=== PATIENT | female | born 2005 | race Two or more races ===

== ENCOUNTER → 2024-02-03 | Outpatient (CLI) | payer OTHER ==
[~2024-02-03] MED LIST: KEPP10002 PO; MULTTAB20 PO
[2024-02-03 12:30] LABS: BASO % 0.3 % (0.0-1.0); EOS % 0.3 % (0.0-3.0); HEMATOCRIT 33.3 % (36.0-47.0); HEMOGLOBIN 10.7 g/dl (12.0-15.5); LYMPH # 2.5 10^3/uL (1.5-5.0); LYMPH % 26.4 % (24.0-44.0); MEAN CORPUSCULAR HEMOGLOBIN 31.3 pg (27.0-33.0); MEAN CORPUSCULAR HGB CONC 32.1 g/dl (32.0-36.5); MEAN CORPUSCULAR VOLUME 97.4 fl (80.0-96.0); MONO # 0.6 10^3/uL (0.0-0.8); MONO % 6.1 % (2.0-8.0); NEUTROPHILS # 6.2 10^3/uL (1.5-8.5); NEUTROPHILS % 66.4 % (36.0-66.0); PLATELET COUNT, AUTOMATED 312 10^3/uL (150-450); RED BLOOD COUNT 3.42 10^6/uL (4.00-5.40); WHITE BLOOD COUNT 9.3 10^3/uL (4.0-10.0)
[2024-02-03 13:33] LABS: HIV 1&2 SCREEN NEGATIVE (NEGATIVE)
[2024-02-03 13:42] LABS: HEPATITIS C VIRUS ABY INDEX 0.02 INDEX (<0.8)
[2024-02-03 14:23] LABS: GC DNA AMPLIFICATION NEGATIVE (NEGATIVE)
== END ==
LOC: M LAB 11:02
PROVIDERS: ATTEND Family Medicine
DX: O98.319 Other infections with a predominantly sexual mode of transmission complicating pregnancy, unspecified trimester (principal)

== ENCOUNTER 2024-02-06 08:09 | Inpatient (IN) | payer OTHER ==
[~2024-02-06] VITALS: Ht 172.7 cm; Wt 65.2 kg
[2024-02-06] VITALS (49 sets, daily range): BP systolic 96–138; BP diastolic 51–77
[2024-02-06] MEDS ORDERED: MULTTAB20 PO (08:36)
[2024-02-06] MEDS ORDERED: KEPP10002 PO (08:36)
[2024-02-06 09:36] LABS: HEMOGLOBIN 9.7 g/dl (12.0-15.5); MEAN CORPUSCULAR HGB CONC 32.3 g/dl (32.0-36.5); MEAN CORPUSCULAR VOLUME 95.8 fl (80.0-96.0); PLATELET COUNT, AUTOMATED 283 10^3/uL (150-450); RED BLOOD COUNT 3.13 10^6/uL (4.00-5.40); WHITE BLOOD COUNT 7.9 10^3/uL (4.0-10.0)
[2024-02-06] MEDS ORDERED: OXYTOCIN INJ 10UNITS/ML 1ML VIAL IM PRN (10:00)
[2024-02-06] MEDS ORDERED: CARBOPROST TROMETHAMINE 250 MCG/ML AMP IM PRN (10:00)
[2024-02-06] MEDS ORDERED: OXYTOCIN DRIP 30 UNITS in IV 1 EA IV PRN (10:00)
[2024-02-06] MEDS ORDERED: METHYLERGONOVINE MALEATE 0.2MG/ML 1ML VIAL IM PRN (10:00)
[2024-02-06] MEDS ORDERED: TRANEXAMIC ACID INJection 1,000 MG in NS 100 ML IV PRN (10:00)
[2024-02-06] MEDS ORDERED: LIDOCAINE 1% MDV 20ML VIAL INFIL PRN (10:00)
[2024-02-06] MEDS ORDERED: LR 1,000 ML IV SCH ×2 (10:25→20:40)
[2024-02-06] MEDS: LR 1,000 ML IV SCH (10:50)
[2024-02-06] MEDS: OXYTOCIN DRIP 30 UNITS in IV 1 EA IV SCH ×2 (10:51→20:40)
[2024-02-06] MEDS: levETIRAcetam 250MG TABLET (KEPPRA) PO SCH ×2 (10:51→21:33)
[2024-02-06] MEDS: LACTATED RINGER'S 1000 ML IV STA (15:13)
[2024-02-06] MEDS ORDERED: FENTANYL 2MCG/ML ROPIVACAINE 0.2% IN 0.9% NACL 100ML IVBAG As Ordered ONE (15:29)
[2024-02-06] MEDS ORDERED: ePHEDrine SULFATE 25 MG/5 ML(5MG/ML) SYRINGE IVP PRN (15:30)
[2024-02-06] MEDS ORDERED: NALOXONE INJ 0.4MG/1ML VIAL IV PRN (15:30)
[2024-02-06] MEDS ORDERED: ONDANSETRON 4MG 2ML VIAL IV PRN (15:30)
[2024-02-06] MEDS ORDERED: diphenhydrAMINE 50MG/ML VIAL IV PRN (15:30)
[2024-02-06] MEDS ORDERED: LR 500 ML IV PRN (15:30)
[2024-02-06] MEDS ORDERED: EPIDURAL/PCA KEYS XX PRN (15:30)
[2024-02-06] MEDS: FENTANYL/ROPIVACAINE/NACL BAG 100 ML EPIDURAL SCH (16:02)
[2024-02-06] MEDS: OXYTOCIN DRIP 30 UNITS in IV 1 EA IV PRN (20:30)
[2024-02-06] MEDS ORDERED: DOCUSATE SODIUM 100MG CAPSULE PO PRN (20:40)
[2024-02-06] MEDS ORDERED: METHYLERGONOVINE MALEATE 0.2 MG TAB PO PRN (20:40)
[2024-02-06] MEDS ORDERED: METOCLOPRAMIDE INJ 10MG/2ML VIAL IV PRN (20:40)
[2024-02-06] MEDS ORDERED: ACETAMINOPHEN TAB 650MG DOSE (2X325MG) PO PRN (20:40)
[2024-02-06] MEDS ORDERED: DIBUCAINE 1% OINTMENT 30GM TOP PRN (20:40)
[2024-02-06] MEDS ORDERED: OXYTOCIN DRIP 30 UNITS in IV 1 EA IV SCH (20:40)
[2024-02-06] MEDS ORDERED: MOM 30ML SUSPENSION UDC PO PRN (20:40)
[2024-02-06] MEDS ORDERED: RHOGAM 300MCG (1500IU) INJ IM SCH (20:40)
[2024-02-06] MEDS ORDERED: IBUPROFEN 600MG TAB PO PRN (20:40)
[2024-02-07 06:00] VITALS: BP 95/50; O2SAT 100
[2024-02-07] MEDS: IBUPROFEN 800 MG TAB PO PRN (06:08)
[2024-02-07] MEDS: PRENATAL VITAMINS CHEWABLE TABLET PO SCH (08:29)
[2024-02-07] MEDS: ACETAMINOPHEN 500 MG TAB PO PRN (08:37)
[2024-02-07 19:13] VITALS: BP 101/62; O2SAT 99
[2024-02-08 06:09] VITALS: BP 103/55; O2SAT 99
[2024-02-08] MEDS ORDERED: MEASLES,MUMPS,RUBELLA VACCINE INJ (MMR-II) SC.IMMUN ONE (09:00)
== END 2024-02-08 11:30 | disposition home or self-care (01) | DRG 806 ==
LOC: M LDI 08:09 → M OBS 22:53
PROVIDERS: ADMIT Obstetrics & Gynecology; ATTEND Obstetrics & Gynecology
PROC: 10E0XZZ Delivery of Products of Conception, External Approach (ICD-10-PCS; principal; 2024-02-06)
PROC: 3E033VJ Introduction of Other Hormone into Peripheral Vein, Percutaneous Approach (ICD-10-PCS; 2024-02-06)
PROC: 10907ZC Drainage of Amniotic Fluid, Therapeutic from Products of Conception, Via Natural or Artificial Opening (ICD-10-PCS; 2024-02-06)
DX: O36.5933 Maternal care for other known or suspected poor fetal growth, third trimester, fetus 3 (principal); Z37.0 Single live birth; O99.354 Diseases of the nervous system complicating childbirth; Z3A.38 38 weeks gestation of pregnancy; G43.909 Migraine, unspecified, not intractable, without status migrainosus; O32.6XX0 Maternal care for compound presentation, not applicable or unspecified; O99.02 Anemia complicating childbirth; D64.9 Anemia, unspecified